=== PATIENT | female | born 1965 | race Caucasian/White ===

== ENCOUNTER → 2017-01-03 | Outpatient (CLI) | payer BC ==
--- NOTE | 2017-01-03 16:35 | US ---
EXAMINATION TYPE: US thyroid st tissue head/neck DATE OF EXAM: 01/03/2017 4:22 PM COMPARISON: 05/31/2016 CLINICAL HISTORY: E04.1 Thyroid nodule. pt states 6 month F/U GLAND SIZE: Right Lobe: 5.3 x 1.7 x 1.7 cm Overall Parenchyma: Slightly heterogeneous Left Lobe: 5.5 x 1.4 x 1.7 cm Overall Parenchyma: homogeneous Isthmus Thickness: 0.3 cm NODULES RIGHT: # of nodules measured on right: 2 1. 0.3 cm cystic nodule at the mid pole with well-defined margins; This nodule is wider than tall a nd shows no intranodular vascularity. Prior size: 0.3 cm 2. 0.3 cm cystic nodule at the lower pole with well-defined margins;This nodule is wider than tall a nd shows no intranodular vascularity. Prior size: 0.3 cm LEFT: # of nodules measured on left: 1 1. 0.3 cm cystic nodule at the lower pole with well-defined margins; This nodule is wider than flor[place] l and shows no intranodular vascularity. Prior size: 0.4 cm ISTHMUS: # of nodules measured in the isthmus: 1 1. 0.5 cm cystic nodule with well-defined margins; This nodule is wider than tall and shows intrano dular vascularity. Prior size: 0.6 cm IMPRESSION: Bilateral neck scanned, no abnormal lymphadenopathy noted./ Stable, small, sub-centimete r nodules
== END | disposition home or self-care (01) ==
LOC: RADUSWWP 16:10
PROVIDERS: ATTEND Family Medicine
DX: E04.1 Nontoxic single thyroid nodule (principal)
CPT/HCPCS: 76536

== ENCOUNTER 2017-01-21 08:47 | Day surgery (SDC) | payer BC ==
[2017-01-16 10:31] VITALS: BMI 28.3
[~2017-01-21 08:47] MED LIST: LACTATED RINGERS 1,000 ML IV SCH
[2017-01-21] MEDS ORDERED: LIDOCAINE 1% 20 ML VIAL (10MG/ML) FOR IV START SQ ONE (10:10)
[2017-01-21 10:16] VITALS: BP 165/86; PULSE 75; RESP 16; TEMP 98
[2017-01-21] MEDS ORDERED: LIDOCAINE 1% INJ 10MG/ML (20 ML MDV) ONE (11:00)
[2017-01-21] MEDS ORDERED: PROPOFOL 10 MG/ML 20 ML VIAL IV ONE (11:00)
--- NOTE | 2017-01-21 11:27 | P.PCN ---
Date of Procedure: 01/21/17 Procedure(s) Performed: Procedure: Total colonoscopy. Preoperative diagnosis: Screening for neoplasia. Postoperative diagnosis: Diverticulosis with no evidence of acute diverticulitis , strictures, polyps or cancer. Preparation: HalfLytely prep. Sedation: Was provided by anesthesia. Brief clinical history: The patient is a 51-year-old female who is referred for this evaluation for screening for neoplasia age being her risk factor. She has no abdominal complaints, bleeding or anemia. No family history of colon cancer. This would be her first colonoscopy. Procedure: With the patient on her left lateral decubitus position and after informed consent and adequate sedation, the perianal area was inspected and it did not show any fissures or fistulas. There were no masses felt on digital rectal examination. The Olympus CFQ 160L scope was then inserted in the rectum in the usual fashion and advanced to the cecum. There were few diverticular orifices noted around the hepatic flexure and on the right side and I did not see any obvious diverticular orifices on the left side and sigmoid. No evidence of acute diverticulitis or strictures. The mucosa appeared healthy. No polyps or tumors were seen. I retroflexed endoscope in the rectum before the endoscope was withdrawn. The patient tolerated the procedure well. Plan: The patient was reassured. Discussed dietary measures. She will follow- up with you as planned and I recommended repeat exam in 10 years.
== END 2017-01-21 11:55 | disposition home or self-care (01) ==
LOC: ORWHC2ENDO 08:47
DX: Z12.11 Encounter for screening for malignant neoplasm of colon (principal); K57.30 Diverticulosis of large intestine without perforation or abscess without bleeding; I10 Essential (primary) hypertension; Z79.899 Other long term (current) drug therapy; Z88.0 Allergy status to penicillin; Z88.5 Allergy status to narcotic agent
CPT/HCPCS: J2001; J2704; G0121; 99153

== ENCOUNTER → 2017-07-09 | Outpatient (CLI) | payer BC ==
--- NOTE | 2017-07-09 17:18 | US ---
EXAMINATION TYPE: US thyroid st tissue head/neck DATE OF EXAM: 07/09/2017 COMPARISON: US dated 01/03/2017 CLINICAL HISTORY: E04.2 goiter. 6 month F/U GLAND SIZE: Right Lobe: 4.2 x 1.2 x 1.8 cm Overall Parenchyma: homogenous Left Lobe: 4.3 x 1.3 x 1.7 cm Overall Parenchyma: homogeneous Isthmus Thickness: 0.3 cm NODULES RIGHT: # of nodules measured on right: 2 1. 0.3 cm cystic nodule at the lower pole with well-defined margins; This nodule is wider than flor[place] l Prior size: 0.3 cm 2. 0.3 cm cystic nodule at the mid pole with well-defined margins; This nodule is wider than tall Prior size: 0.3 cm LEFT: # of nodules measured on left: 1 1. 0.2 cm cystic nodule at the lower pole with well-defined margins; This nodule is wider than ta ll Prior size: 0.3 cm ISTHMUS: # of nodules measured in the isthmus: 1 1. 0.5 cm cystic nodule with well-defined margins; This nodule is wider than tall Prior size: 0.5 cm Bilateral neck scanned, no evidence of lymphadenopathy. Stable sub-centimeter nodules bilaterally IMPRESSION: Stable exam.
== END | disposition home or self-care (01) ==
LOC: RADUSWWP 15:44
PROVIDERS: ATTEND Family Medicine
DX: E04.2 Nontoxic multinodular goiter (principal)
CPT/HCPCS: 76536

== ENCOUNTER → 2018-01-14 | Outpatient (CLI) | payer BC ==
--- NOTE | 2018-01-15 13:33 | MM ---
Reason for exam: screening (asymptomatic). Last mammogram was performed 1 year and 2 months ago. History: Family history of breast cancer in sister at age 30. Benign excisional biopsy of the left breast, 2005. Benign excisional biopsy of the right breast, 2001. Took hormonal contraceptives for 5 years beginning at age 21. Physical Findings: A clinical breast exam by your physician is recommended on an annual basis and results should be correlated with mammographic findings. MG Screening Mammo w CAD Bilateral CC and MLO view(s) were taken. Prior study comparison: November 08, 2016, bilateral MG screening mammo w CAD. October 24, 2015, bilateral MG screening mammo w CAD. There are scattered fibroglandular densities. Asymmetric breast tissue in left breast on MLO view 3-4cm from nipple likely confidence of shadow. This finding is changed when compared with previous exams. ASSESSMENT: Incomplete: need additional imaging evaluation, BI-RAD 0 RECOMMENDATION: Special view mammogram of the left breast. If lesion persists on supplemental views, image directed ultrasound is recommended. [facility] will attempt to contact patient to return for supplemental views and ultrasound if indicated.
== END | disposition home or self-care (01) ==
LOC: RADMAMWWP 07:11
PROVIDERS: ATTEND Obstetrics & Gynecology
DX: Z12.31 Encounter for screening mammogram for malignant neoplasm of breast (principal); R92.8 Other abnormal and inconclusive findings on diagnostic imaging of breast
CPT/HCPCS: 77067

== ENCOUNTER → 2018-01-14 | Outpatient (CLI) | payer BC ==
--- NOTE | 2018-01-14 09:13 | US ---
EXAMINATION TYPE: US thyroid st tissue head/neck DATE OF EXAM: 01/14/2018 COMPARISON: NONE CLINICAL HISTORY: E04.1 Nontoxic Single Thyroid Nodule. GLAND SIZE: Right Lobe: 4.9 x 1.4 x 1.3 cm Overall Parenchyma: homogenous Left Lobe: 5.3 x 1.4 x 1.4 cm Overall Parenchyma: homogeneous Isthmus Thickness: 0.3 cm NODULES RIGHT: # of nodules measured on right: 2 1. 0.3 X 0.2 x 0.3 cm hypoechoic cystic nodule at the lower pole with well-defined margins; . This nodule is wider than tall and shows no intranodular vascularity. Prior size: 0.3 cm 2. 0.4 X 0.2 x 0.3 cm hypoechoic cystic nodule at the mid pole with well-defined margins; . This no dule is wider than tall and shows no intranodular vascularity. Prior size: 0.3 cm LEFT: # of nodules measured on left: 0 Previously visualized cystic nodule not visualized on this exam. ISTHMUS: # of nodules measured in the isthmus: 1 1. 0.6 X 0.3 x 0.5 cm hypoechoic cystic nodule at the mid right pole with well-defined margins; . This nodule is wider than tall and shows no intranodular vascularity. Prior size: 0.5 cm Bilateral neck scanned, no evidence of lymphadenopathy. IMPRESSION: Thyroid enlargement with multiple nodular changes. There are no nodules measuring 1 cm or greater. No significant interval change in the size of the nodules compared to the prior exam.
== END | disposition home or self-care (01) ==
LOC: RADUSWWP 07:13
PROVIDERS: ATTEND Family Medicine
DX: E04.2 Nontoxic multinodular goiter (principal)
CPT/HCPCS: 76536

== ENCOUNTER → 2018-01-26 | Outpatient (CLI) | payer BC ==
--- NOTE | 2018-01-26 08:28 | MM ---
Reason for exam: additional evaluation requested from abnormal screening. Last mammogram was performed less than 1 month ago. History: Family history of breast cancer in sister at age 30. Benign excisional biopsy of the left breast, 2005. Benign excisional biopsy of the right breast, 2001. Took hormonal contraceptives for 5 years beginning at age 21. Physical Findings: Nurse did not find any significant physical abnormalities on exam. MG Work Up Mamm w CAD LT LM and spot compression MLO view(s) were taken of the left breast. Prior study comparison: January 14, 2018, bilateral MG screening mammo w CAD. November 08, 2016, bilateral MG screening mammo w CAD. The breast tissue is heterogeneously dense. This may lower the sensitivity of mammography. No suspicious abnormality. The previously seen left breast asymmetry appears as fibroglandular tissue on additional views. These results were verbally communicated with the patient and result sheet given to the patient on 01/26/18. ASSESSMENT: Negative, BI-RAD 1 RECOMMENDATION: Return to routine screening mammogram schedule for both breasts.
== END | disposition home or self-care (01) ==
LOC: RADMAMWWP 07:02
PROVIDERS: ATTEND Obstetrics & Gynecology
DX: R92.8 Other abnormal and inconclusive findings on diagnostic imaging of breast (principal)
CPT/HCPCS: 77065

== ENCOUNTER → 2019-02-18 | Outpatient (CLI) | payer BC ==
--- NOTE | 2019-02-18 08:54 | US ---
EXAMINATION TYPE: US thyroid st tissue head/neck DATE OF EXAM: 02/18/2019 COMPARISON: 01/14/2018 CLINICAL HISTORY: 53-year-old female E04.2 Nontoxic multinodular goiter. TECHNIQUE: Multiple sonographic images of the thyroid gland are obtained. FINDINGS: GLAND SIZE: Right Lobe: 5.4 x 1.1 x 1.3 cm Overall Parenchyma: homogenous Left Lobe: 4.9 x 1.6 x 1.0 cm Overall Parenchyma: homogeneous Isthmus Thickness: 0.4 cm NODULES RIGHT: # of nodules measured on right: 1 1. 0.3 X 0.3 x 0.2 cm hypoechoic cystic nodule at the upper pole with well-defined margins. This n odule is wider than tall and shows no intranodular vascularity. Prior size: 3 mm. LEFT: # of nodules measured on left: 0 ISTHMUS: # of nodules measured in the isthmus: 2 1. 0.4 X 0.3 x 0.2 cm hypoechoic cystic nodule at the mid pole with well-defined margins; present w ith peripheral microcalcification. This nodule is wider than tall and shows no intranodular vascular ity. Prior size: 0.4 x 0.3 x 0.3 cm 2. 0.6 X 0.3 x 0.2 cm superficial cyst at the mid aspect with well-defined margins. This nodule is w ider than tall and shows no intranodular vascularity. Prior size: 0.6 x 0.3 x 0.5 cm Bilateral neck scanned: no evidence of lymphadenopathy. IMPRESSION: 1. Borderline to mild thyromegaly. 2. 3 cystic appearing nodules in the isthmus and right lobe measuring up to 6 mm are overall stable.
== END ==
LOC: RADUSWWP 06:57
PROVIDERS: ATTEND Family Medicine
DX: E01.0 Iodine-deficiency related diffuse (endemic) goiter (principal)
CPT/HCPCS: 76536

== ENCOUNTER → 2019-03-02 | Outpatient (CLI) | payer BC ==
--- NOTE | 2019-03-02 13:10 | MM ---
Reason for exam: screening (asymptomatic). Last mammogram was performed 1 year and 1 month ago. History: Family history of breast cancer in sister at age 30. Benign excisional biopsy of the left breast, 2005. Benign excisional biopsy of the right breast, 2001. Took hormonal contraceptives for 5 years beginning at age 21. Physical Findings: A clinical breast exam by your physician is recommended on an annual basis and results should be correlated with mammographic findings. MG Screening Mammo w CAD Bilateral CC and MLO view(s) were taken. Prior study comparison: January 26, 2018, left breast MG work up mamm w CAD LT. January 14, 2018, bilateral MG screening mammo w CAD. There are scattered fibroglandular densities. Benign calcifications in the right breast. No significant changes when compared with prior studies. ASSESSMENT: Benign, BI-RAD 2 RECOMMENDATION: Routine screening mammogram of both breasts in 1 year.
== END | disposition home or self-care (01) ==
LOC: RADMAMWWP 06:51
PROVIDERS: ATTEND Family Medicine
DX: Z12.31 Encounter for screening mammogram for malignant neoplasm of breast (principal)
CPT/HCPCS: 77067

== ENCOUNTER → 2019-03-22 | Outpatient (CLI) | payer BC ==
[2019-03-22 10:42] VITALS: BMI 28.3
== END ==
LOC: DBWHC3 08:47
PROVIDERS: ATTEND Family Medicine
DX: R73.09 Other abnormal glucose (principal)
CPT/HCPCS: 97802

== ENCOUNTER → 2019-11-11 | Outpatient (CLI) | payer BC ==
--- NOTE | 2019-11-12 09:41 | US ---
EXAMINATION TYPE: US thyroid st tissue head/neck DATE OF EXAM: 11/11/2019 COMPARISON: US 02/18/2019 and 05/31/2016 CLINICAL HISTORY: E04.2 nontoxic multinodular goiter. GLAND SIZE: Right Lobe: 4.9 x 1.6 x 0.9 cm Overall Parenchyma: homogenous Left Lobe: 5.3 x 1.8 x 1.4 cm Overall Parenchyma: homogeneous Isthmus Thickness: 0.4 cm NODULES RIGHT: # of nodules measured on right: 0 LEFT: # of nodules measured on left: 0 ISTHMUS: # of nodules measured in the isthmus: 1 1. 0.5 X 0.3 x 0.2 cm hypoechoic cystic nodule at the right isthmus pole with well-defined margins; . This nodule is wider than tall and shows no intranodular vascularity. Prior size: 0.4 x 0.3 x 0.2 cm Bilateral neck scanned, no evidence of lymphadenopathy. Nodule as described. IMPRESSION: Similar size of a subcentimeter solitary isthmic nodule dating back to 05/31/2016. The additional right thyroid nodule seen on the most recent prior are not definitively visualized on today's exam.
== END | disposition home or self-care (01) ==
LOC: RADUSWWP 16:36
PROVIDERS: ATTEND Family Medicine
DX: E04.2 Nontoxic multinodular goiter (principal)
CPT/HCPCS: 76536

== ENCOUNTER → 2020-05-05 | Outpatient (CLI) | payer BC ==
--- NOTE | 2020-05-05 09:51 | FL ---
EXAMINATION TYPE: FL barium swallow DATE OF EXAM: 05/05/2020 CLINICAL HISTORY: Dysphagia feeling lump in throat for up to 6 months. Some improvement in symptoms o n antireflux medication per patient. TECHNIQUE: A double contrast esophagram is performed utilizing air and barium. A total of 25 second s of fluoroscopic time was utilized during procedure. 39 spot images are saved to PACS. Thyroid ultra sound November 11, 2019. COMPARISON: None FINDINGS: The esophagus shows satisfactory motility and emptying into the stomach. No suspicious obst ructing mass or stricture with particular attention to the proximal esophagus that area of patient co ncern. No fixed hiatal hernia is seen. No significant gastroesophageal reflux was seen during real ti me performance of this study. No diverticulum is present. IMPRESSION: No significant abnormality is seen to account for patient's symptoms.
== END | disposition home or self-care (01) ==
LOC: RADUSWWP 08:40
PROVIDERS: ATTEND Otolaryngology
DX: R13.10 Dysphagia, unspecified (principal)
CPT/HCPCS: 74220

== ENCOUNTER → 2020-06-20 | Outpatient (CLI) | payer BC ==
--- NOTE | 2020-06-20 12:08 | MM ---
Reason for exam: screening (asymptomatic). Last mammogram was performed 1 year and 4 months ago. History: Family history of breast cancer in sister at age 30. Benign excisional biopsy of the left breast, 2005. Benign excisional biopsy of the right breast, 2001. Took hormonal contraceptives for 5 years beginning at age 21. Physical Findings: A clinical breast exam by your physician is recommended on an annual basis and results should be correlated with mammographic findings. MG Screening Mammo w CAD Bilateral CC and MLO view(s) were taken. Prior study comparison: March 02, 2019, bilateral MG screening mammo w CAD. January 26, 2018, left breast MG work up mamm w CAD LT. There are scattered fibroglandular densities. No significant changes when compared with prior studies. ASSESSMENT: Negative, BI-RAD 1 RECOMMENDATION: Routine screening mammogram of both breasts in 1 year.
--- NOTE | 2020-06-20 15:46 | BD ---
EXAMINATION TYPE: Axial Bone Density DATE OF EXAM: 06/20/2020 COMPARISON: NONE CLINICAL HISTORY: 54-year-old female postmenopausal screening Height: 5 FT 4 IN Weight: 160 FRAX RISK QUESTIONS: Alcohol (3 or more units per day): NO Family History (Parent hip fracture): NO Glucocorticoids (More than 3mos): NO (Ex: prednisone, prednisolone, methylprednisolone, dexamethasone, and hydrocortisone). History of Fracture in Adulthood: NO Secondary Osteoporosis: 1. Type 1 Diabetes: NO 2. Hyperthyroidism: NO 3. Menopause before 45: UNSURE 4. Malnutrition: NO 5. Chronic liver disease: NO Rheumatoid Arthritis: NO Current Tobacco Use: NO RISK FACTORS HISTORY OF: Active: NO Postmenopausal woman: PART HYST AROUND AGE 41 MEDICATIONS: Additional Medications: AMLODIPINE, VITAMINS Additional History: EXAM MEASUREMENTS: Bone mineral densitometry was performed using the [employer] [facility]. Bone mineral density as measured about the Lumbar spine is: ----- L1-L4(G/cm2): 1.213 T Score Values are as follows: ----- L2: -1.0 ----- L3: 0.9 ----- L4: 0.7 ----- L1-L4: 0.3 BASELINE Bone mineral density about the R hip (g/cm2): 0.798 Bone mineral density about the L hip (g/cm2): 0.853 T Score values are as follows: -----R Neck: -1.7 -----L Neck: -1.3 -----R Total: -0.9 -----L Total:-1.1 BASELINE IMPRESSION: Osteopenia (T Score between -2.5 and -1). There is slightly increased risk of fracture and the patient may be considered for treatment. Re-Screen 2-5 years. NOTE: T-SCORE=SD OF THE YOUNG ADULT MEAN.
== END | disposition home or self-care (01) ==
LOC: RADMAMWWP 07:03
PROVIDERS: ATTEND Family Medicine
DX: Z12.31 Encounter for screening mammogram for malignant neoplasm of breast (principal); Z78.0 Asymptomatic menopausal state; M85.80 Other specified disorders of bone density and structure, unspecified site
CPT/HCPCS: 77067; 77080

== ENCOUNTER → 2020-11-13 | Outpatient (CLI) | payer BC ==
--- NOTE | 2020-11-13 07:35 | US ---
EXAMINATION TYPE: US thyroid st tissue head/neck DATE OF EXAM: 11/13/2020 COMPARISON: 11/11/2019 CLINICAL HISTORY: E04.2 nontoxic multinodular goiter. Goiter, follow up thyroid nodule GLAND SIZE: Right Lobe: 5.8 x 1.7 x 1.2 cm Overall Parenchyma: homogenous Left Lobe: 5.5 x 1.3 x 1.5 cm Overall Parenchyma: homogeneous Isthmus Thickness: 0.4 cm NODULES RIGHT: # of nodules measured on right: 0 LEFT: # of nodules measured on left: 0 ISTHMUS: # of nodules measured in the isthmus: 1 1. 0.7 X 0.3 x 0.4 cm cystic or almost completely cystic, very hypoechoic nodule, which is wider th an tall, with smooth margins, with echogenic foci. Prior size: 0.5 x 0.3 x 0.2 cm Bilateral neck scanned, no evidence of lymphadenopathy. IMPRESSION: Nonspecific thyroid nodularity slight increase in size. Thyroid lobes are enlarged.
== END | disposition home or self-care (01) ==
LOC: RADUSWWP 06:59
PROVIDERS: ATTEND Family Medicine
DX: E04.2 Nontoxic multinodular goiter (principal)
CPT/HCPCS: 76536

== ENCOUNTER → 2021-05-31 | Outpatient (CLI) | payer BC ==
--- NOTE | 2021-05-31 08:14 | US ---
EXAMINATION TYPE: US thyroid st tissue head/neck DATE OF EXAM: 05/31/2021 COMPARISON: 11/13/2020 CLINICAL HISTORY: E04.2 Nontoxic multinodular goiter. Thyroid nodule GLAND SIZE: Right Lobe: 5.7 x 1.6 x 1.2 cm Overall Parenchyma: homogenous Left Lobe: 5.1 x 1.3 x 1.6 cm Overall Parenchyma: homogeneous Isthmus Thickness: 0.3 cm NODULES RIGHT: # of nodules measured on right: 0 LEFT: # of nodules measured on left: 0 ISTHMUS: # of nodules measured in the isthmus: 1 1. 0.7 X 0.3 x 0.5 cm cystic or almost completely cystic, anechoic nodule, which is wider than tall , with smooth margins, with echogenic foci. Prior size: 0.7 x 0.3 x 0.4 cm Bilateral neck scanned, no evidence of lymphadenopathy. IMPRESSION: Cystic nodule at the thyroid isthmus measuring 7 mm. This is stable. No solid nodule is seen. 2017 ACR TI-RADS LEVEL: 1 *Highest TI-RADS level nodule reported
== END | disposition home or self-care (01) ==
LOC: RADUSWWP 06:59
PROVIDERS: ATTEND Family Medicine
DX: E04.1 Nontoxic single thyroid nodule (principal)
CPT/HCPCS: 76536

== ENCOUNTER → 2021-06-21 | Outpatient (CLI) | payer BC ==
--- NOTE | 2021-06-22 11:17 | MM ---
Reason for exam: screening (asymptomatic). Last mammogram was performed 1 year ago. History: Patient is postmenopausal. Family history of breast cancer in sister at age 30. Benign excisional biopsy of the left breast, 2005. Benign excisional biopsy of the right breast, 2001. Took hormonal contraceptives for 5 years beginning at age 21. Physical Findings: A clinical breast exam by your physician is recommended on an annual basis and results should be correlated with mammographic findings. MG Screening Mammo w CAD Bilateral CC and MLO view(s) were taken. Prior study comparison: June 20, 2020, bilateral MG screening mammo w CAD. March 02, 2019, bilateral MG screening mammo w CAD. There are scattered fibroglandular densities. There an asymmetry in the left lower outer breast and ultrasound is recommended 1-5 o'clock and central position. ASSESSMENT: Incomplete: need additional imaging evaluation, BI-RAD 0 RECOMMENDATION: Ultrasound of the left breast. [facility] will attempt to contact patient to return for ultrasound.
== END | disposition home or self-care (01) ==
LOC: RADMAMWWP 07:30
PROVIDERS: ATTEND Obstetrics & Gynecology
DX: Z12.31 Encounter for screening mammogram for malignant neoplasm of breast (principal); Z78.0 Asymptomatic menopausal state; Z80.3 Family history of malignant neoplasm of breast
CPT/HCPCS: 77067

== ENCOUNTER → 2021-06-27 | Outpatient (CLI) | payer BC ==
--- NOTE | 2021-06-29 13:56 | USB ---
Reason for exam: additional evaluation requested from abnormal screening. History: Patient is postmenopausal. Family history of breast cancer in sister at age 30. Benign excisional biopsy of the left breast, 2005. Benign excisional biopsy of the right breast, 2001. Took hormonal contraceptives for 5 years beginning at age 21. Physical Findings: Nurse did not find any significant physical abnormalities on exam. US Breast Workup Limited LT Left limited breast ultrasound including focal area of concern, retroareolar and axilla demonstrates no cystic or solid lesion seen. These results were verbally communicated with the patient and result sheet given to the patient on 06/27/21. ASSESSMENT: Incomplete: need additional imaging evaluation, BI-RAD 0 RECOMMENDATION: Special view mammogram of the left breast.
--- NOTE | 2021-06-29 13:58 | MM ---
Reason for exam: additional evaluation requested from abnormal screening. Last mammogram was performed less than 1 month ago. History: Patient is postmenopausal. Family history of breast cancer in sister at age 30. Benign excisional biopsy of the left breast, 2005. Benign excisional biopsy of the right breast, 2001. Took hormonal contraceptives for 5 years beginning at age 21. Physical Findings: Nurse did not find any significant physical abnormalities on exam. MG 3D Work Up W/Cad LT Spot compression CC, spot compression MLO, and LM view(s) were taken of the left breast. Prior study comparison: June 21, 2021, bilateral MG screening mammo w CAD. June 20, 2020, bilateral MG screening mammo w CAD. The breast tissue is heterogeneously dense. This may lower the sensitivity of mammography. There is no discrete abnormality including area of concern left lower outer quadrant. These results were verbally communicated with the patient and result sheet given to the patient on 06/27/21. ASSESSMENT: Probably benign, BI-RAD 3 RECOMMENDATION: Follow-up diagnostic mammogram of the left breast in 6 months.
== END | disposition home or self-care (01) ==
LOC: RADUSWWP 08:48
PROVIDERS: ATTEND Obstetrics & Gynecology
DX: R92.2 Inconclusive mammogram (principal); Z78.0 Asymptomatic menopausal state; Z80.3 Family history of malignant neoplasm of breast
CPT/HCPCS: 77061; 77065

== ENCOUNTER → 2022-07-01 | Outpatient (CLI) | payer BC ==
--- NOTE | 2022-07-01 10:07 | US ---
EXAMINATION TYPE: US thyroid st tissue head/neck DATE OF EXAM: 07/01/2022 COMPARISON: 05/31/2021 CLINICAL HISTORY: 56-year-old female E04.2 NONTOXIC MULTINODULAR GOITER. TECHNIQUE: Multiple sonographic images of the thyroid gland are obtained. FINDINGS: GLAND SIZE: Right Lobe: 5.9 x 1.8 x 1.2 cm Overall Parenchyma: homogenous Left Lobe: 5.7 x 1.1 x 1.4 cm Overall Parenchyma: homogeneous Isthmus Thickness: 0.4 cm NODULES RIGHT: # of nodules measured on right: 0 LEFT: # of nodules measured on left: 0 ISTHMUS: # of nodules measured in the isthmus: 1 1. 0.6 X 0.3 x 0.4 cm benign cyst in the right isthmus Prior size: 0.7 x 0.3 x 0.5 cm Bilateral neck scanned, no evidence of lymphadenopathy. IMPRESSION: Mild thyromegaly. A small 6 mm benign cyst in the right Isthmus redemonstrated.
== END | disposition home or self-care (01) ==
LOC: RADUSWWP 06:56
PROVIDERS: ATTEND Family Medicine
DX: E04.2 Nontoxic multinodular goiter (principal)
CPT/HCPCS: 76536

== ENCOUNTER → 2023-07-31 | Outpatient (CLI) | payer MEDICAID ==
--- NOTE | 2023-08-03 23:46 | MM ---
Reason for Exam: Screening (asymptomatic). Last screening mammogram was performed 12 month(s) ago. Patient History: Menarche at age 16. First Full-Term at age 19. Hysterectomy at age 41. Postmenopausal. Hormonal Contraceptives for 5 years from age 21 until age 26. 2005, Benign Excisional Biopsy on the left side. 2001, Benign Excisional Biopsy on the right side. Sister had breast cancer, age 30. Risk Values: Erum 5 year model risk: 3.1%. NCI Lifetime model risk: 19.2%. Prior Study Comparison: 06/21/2021 Bilateral Screening Mammogram, [facility]. 06/27/2021 Left Diagnostic Mammogram, [facility]. 07/19/2022 Bilateral MG 3D screening mammo w/cad, [facility]. Tissue Density: There are scattered fibroglandular densities. Findings: Analyzed By CAD. There is no suspicious group of microcalcifications or new suspicious mass in either breast. Overall Assessment: Negative, BI-RAD 1 Management: Screening Mammogram of both breasts in 1 year. See note below in regards to patient's increased 5 year Erum score. Patient should continue monthly self-breast exams. A clinical breast exam by your physician is recommended on an annual basis. This exam should not preclude additional follow-up of suspicious palpable abnormalities. Note on Erum scores and lifetime risk: 1. A Erum score greater than 3% is considered moderate risk. If this is the case, consider specialist referral to assess eligibility for a risk reducing agent. 2. If overall lifetime risk for the development of breast cancer is 20% or higher, the patient may qualify for future screening with alternating mammogram and breast MRI. Electronically signed and approved by: Quinton Christensen M.D. Radiologist
== END | disposition home or self-care (01) ==
LOC: RADMAMWWP 09:58
PROVIDERS: ATTEND Obstetrics & Gynecology
DX: Z12.31 Encounter for screening mammogram for malignant neoplasm of breast (principal); Z78.0 Asymptomatic menopausal state; Z80.3 Family history of malignant neoplasm of breast
CPT/HCPCS: 77063; 77067

== ENCOUNTER → 2024-08-03 | Outpatient (CLI) | payer OTHER ==
--- NOTE | 2024-08-03 08:52 | MM ---
Reason for Exam: Screening (asymptomatic). Last mammogram was performed 1 year(s) and 1 month(s) ago. Patient History: Menarche at age 16. First Full-Term at age 19. Hysterectomy at age 41. Postmenopausal. Hormonal Contraceptives for 5 years from age 21 until age 26. 2005, Benign Excisional Biopsy on the left side. 2001, Benign Excisional Biopsy on the right side. Sister had breast cancer, age 30. Risk Values: Erum 5 year model risk: 3.3%. NCI Lifetime model risk: 18.8%. Prior Study Comparison: 06/27/2021 Left Diagnostic Mammogram, [facility]. 07/19/2022 Bilateral MG 3D screening mammo w/cad, [facility]. 07/31/2023 Bilateral MG 3D screening mammo w/cad, [facility]. Tissue Density: The breasts are heterogeneously dense, which may obscure small masses. Findings: Analyzed By CAD. There is no suspicious group of microcalcifications or new suspicious mass in either breast. Overall Assessment: Benign, BI-RAD 2 Management: Screening Mammogram of both breasts in 1 year. . Patient should continue monthly self-breast exams. A clinical breast exam by your physician is recommended on an annual basis. This exam should not preclude additional follow-up of suspicious palpable abnormalities. Note on Erum scores and lifetime risk: 1. A Erum score greater than 3% is considered moderate risk. If this is the case, consider specialist referral to assess eligibility for a risk reducing agent. 2. If overall lifetime risk for the development of breast cancer is 20% or higher, the patient may qualify for future screening with alternating mammogram and breast MRI. Electronically signed and approved by: Estrada Hernández M.D. Radiologis
== END | disposition home or self-care (01) ==
LOC: RADMAMWWP 07:32
PROVIDERS: ATTEND Obstetrics & Gynecology
DX: Z12.31 Encounter for screening mammogram for malignant neoplasm of breast
CPT/HCPCS: 77063; 77067